=== PATIENT | male | born 1960 | race Caucasian/White ===

== ENCOUNTER 2021-05-15 13:44 | Emergency (ER) | payer MEDICAID, MEDICARE ==
[~2021-05-15] VITALS: Ht 170.2 cm; Wt 88.8 kg
[2021-05-15] MEDS ORDERED: ASPIRIN 81 MG TABLET CHEW PO ONE (14:30)
[2021-05-15 14:48] LABS: BASOPHILS % (AUTO) 0 % (0-1); EOSINOPHILS % (AUTO) 1 % (1-7); LYMPHOCYTES % (AUTO) 6 % (22-44); MEAN CORPUSCULAR HEMOGLOBIN 29.4 pg (27.5-34.5); MEAN CORPUSCULAR HGB CONC 34.9 g/dL (33.2-36.2); MEAN PLATELET VOLUME 7.3 fL (7.4-10.4); MONOCYTES % (AUTO) 6 % (2-9); NEUTROPHILS % (AUTO) 87 % (42-75); PLATELET COUNT 185 x10^3/uL (130-400); RED BLOOD COUNT 5.18 x10^6/uL (4.38-5.82); RED CELL DISTRIBUTION WIDTH 13.5 % (9.4-14.8)
--- NOTE | 2021-05-15 14:58 | NUR ---
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
[2021-05-15 15:01] LABS: ANION GAP 8 mmol/L (5-15); CALCIUM 9.1 mg/dL (8.5-10.1); CHLORIDE 104 mmol/L (98-107); CREATININE 1.07 mg/dL (0.7-1.3)
[2021-05-15 15:02] LABS: ALANINE AMINOTRANSFERASE 35 U/L (12-78)
[2021-05-15 15:06] LABS: ALKALINE PHOSPHATASE 82 U/L (45-117); BILIRUBIN,TOTAL 0.8 mg/dL (0.2-1.0); TOTAL PROTEIN 7.4 g/dL (6.4-8.2); TROPONIN I < 0.015 ng/mL (0.000-0.045)
--- NOTE | 2021-05-15 15:10 | NUR ---
ASSUMED CARE. PT. HAS THE CP MONITOR IN PLACE. PT. IS A & O X 4 WITH A GCS OF 15. PT. IS PINK, WARM AND DRY. LUNGS ARE CTA THROUGHOUT. S1 S2 NOTED WITHOUT MURMURS, RUBS OR GALLOPS. PT.'S ABD. IS SOFT AND ROUND WITH BS + X 4 QUADS. PT. REPORTS DIARRHEA THIS MORNING AND ABD. PAIN WELL CHEST PAIN BUT STATES IT HAS IMPROVED. CAP REFILL IS BRISK, LESS THAN 2 SECONDS. PULSES ARE + 2 THROUGHOUT. PT. HAS THE SIDERAILS UP X 2 AND THE CALL LIGHT IS IN PLACE. PT. STATES HE TOOK [employer] AND IS REFUSING IT AT THIS TIME.
--- NOTE | 2021-05-15 15:59 | NUR ---
PT. HAS NO CONCERNS AT THIS TIME.
[2021-05-15] MEDS ORDERED: MAALOX/HYOSCYAMINE/LIDOCAINE 45 ML BTL PO ONE (16:00)
[2021-05-15] MEDS ORDERED: MAALOX/HYOSCYAMINE/LIDOCAINE 45 ML BTL ONE (16:20)
--- NOTE | 2021-05-15 18:02 | NUR ---
THE PT. REPORTS FEELING BETTER. HE WAS GIVEN DISCHARGE INSTRUCTIONS AND A SCRIPT WITH UNDERSTANDING VERBALIZED ALONG WITH WILLINGNESS TO COMPLY. PT. WAS AMBULATORY TO THE DISCHARGE DESK. VSS.
[2021-05-15 18:03] VITALS: BP 118/80
== END 2021-05-15 18:06 | disposition home or self-care (01) ==
LOC: ED 14:20
DX: K21.00 Gastro-esophageal reflux disease with esophagitis, without bleeding (principal); R07.89 Other chest pain
CPT/HCPCS: 36415; 71045; 80053; 84484; 85025; 93005; 99285